=== PATIENT | male | born 1965 | race African-American/Black ===

== ENCOUNTER 2018-04-06 19:17 | Inpatient (IN) ==
--- NOTE | 2018-04-06 19:39 | Emergency Department Note ---
Disposition Clinical Impression: Elevated troponin Chest pain Qualifiers: Chest pain type: unspecified Qualified Code(s): R07.9 - Chest pain, unspecified Disposition: Admitted As Inpatient Condition: Good General Adult HPI - General Stated complaint: SOB, Chest Pain Time Seen by Provider: 04/06/18 19:20 Nursing Notes Reviewed: Yes Vital Signs Reviewed: Yes - History of Present Illness HPI Narrative: 53-year-old male past medical history of coronary artery disease, HIV, currently on retrovirals presents to the emergency department with concern for elevated troponin and EKG changes at and outside facility. Patient reported having sharp chest pain radiated up to the neck to the side of the face with numbness and tingling. - Related Data Home Medications Medication Instructions Recorded Confirmed Darunavir Ethanolate [Prezista] 600 mg PO BID 04/06/18 04/06/18 Enfuvirtide [Fuzeon] 90 mg SQ BID 04/06/18 04/06/18 Lisinopril [Zestril] 40 mg PO DAILY 04/06/18 04/06/18 RX: Chlorthalidone 25 mg PO DAILY 04/06/18 04/06/18 Raltegravir Potassium [Isentress] 400 mg PO BID 04/06/18 04/06/18 Rosuvastatin Calcium [Crestor] 20 mg PO DAILY 04/06/18 04/06/18 lamiVUDine [Epivir] 300 mg PO DAILY 04/06/18 04/06/18 Allergies Allergy/AdvReac Type Severity Reaction Status Date / Time Sulfa (Sulfonamide Allergy Itching Verified 04/06/18 19:52 Antibiotics) All systems ED: reviewed and negative except as stated. Review of Systems: As Per HPI Constitutional: Denies: fever Cardiovascular: Reports: chest pain Respiratory: Denies: cough, dyspnea Gastrointestinal: Reports: melena. Denies: abdominal pain, nausea, vomiting Genitourinary: Denies: urgency Musculoskeletal: Denies: back pain Physical Exam - General Limitations: no limitations General appearance: alert, in no apparent distress - Head Head exam: atraumatic, normocephalic - Eye Eye exam: Present: EOMI - ENT ENT exam: normal oropharynx - Neck Neck exam: Present: trachea midline - Chest Chest inspection: Present: symmetric chest wall rise - Respiratory Respiratory exam: Present: normal lung sounds bilaterally. Absent: respiratory distress - Cardiovascular Cardiovascular exam: Present: normal rhythm, bradycardia, normal heart sounds - Abdominal Exam Abdominal exam: Present: soft, Non-Tender. Absent: distention, guarding, rebound, rigidity - Rectal Exam Technology Professional present during exam: Yes Rectal exam: Present: normal inspection. Absent: black stool, bloody stool - Extremities Exam Extremities exam: Present: normal capillary refill - Back Exam Back exam: Present: full ROM - Neurological Exam Neurological exam: Present: alert, oriented X3 - Psychiatric Psychiatric exam: Present: normal affect, normal mood - Skin Skin exam: Present: warm, dry, intact, normal color. Absent: rash Course Vital Signs Temperature 98.7 F 04/06/18 19:28 Pulse Rate 48 04/06/18 19:28 Respiratory Rate 10 04/06/18 19:28 Blood Pressure 153/89 04/06/18 19:28 O2 Sat by Pulse Oximetry 100 04/06/18 19:28 Temperature 97.1 F L 04/07/18 07:06 Pulse Rate 51 04/07/18 07:06 Respiratory Rate 98 04/07/18 07:06 Blood Pressure 138/75 04/07/18 07:06 O2 Sat by Pulse Oximetry 92 04/07/18 07:06 Oxygen Delivery Oxygen Delivery Room Air Medical Decision Making - [facility] Narrative Medical decision making narrative: 53-year-old male presents emergency department with concern for chest pain. Patient had elevated troponin of 0.06 at an outside facility. The T-wave inversions in the anterior and lateral leads as was a T-wave inversion in aVL. Patient reported having blood in his stool. Stool guaiac was obtained. There was no gross blood noted. Patient will be given aspirin. Currently pending CTA of the chest, neck, head as patient was reporting sharp chest pain, radiating in the neck and the face. I spoke to Dr. Coronado regarding the patient. He will wait for the CTs prior to admission. Patient signed out to Dr. Alida Evans. Chest X-Ray 04/06/18 19:20 IMPRESSION: No acute cardiopulmonary disease. D/ / Cameron Owens MD / Cameron Owens MD Interpreting Provider: Cameron Owens MD Vital Signs Temperature 98.7 F 04/06/18 19:28 Pulse Rate 48 04/06/18 19:28 Respiratory Rate 10 04/06/18 19:28 Blood Pressure 153/89 04/06/18 19:28 O2 Sat by Pulse Oximetry 100 04/06/18 19:28 Temperature 98.7 F 04/06/18 19:28 Pulse Rate 49 04/06/18 19:54 Respiratory Rate 18 04/06/18 19:54 Blood Pressure 163/80 04/06/18 19:54 O2 Sat by Pulse Oximetry 100 04/06/18 19:54 Oxygen Delivery Oxygen Delivery Room Air - Lab Data Result diagrams: 04/07/18 02:35 04/07/18 02:35 Lab Results 04/06/18 04/06/18 04/06/18 Range/Units 20:09 20:22 20:22 PT 11.6 (9.4-12.1) Seconds INR 1.0 Troponin I 0.19 H* (< 0.04) ng/mL Stool Occult Bld Scrn Negative (Negative) - EKG Data EKG #1 EKG attestation: Yes I reviewed and interpreted this EKG. EKG results narrative: Heart rate 47 bpm, AR interval 180 ms, QTC 458 ms, QTC 405 ms, attacks deviation. Sinus rhythm with T-wave inversions in inferior and lateral leads. No previous EKG to compare to besides the previous study that was performed today which reveals the same. Attestation Statement - Attestation Attestation: I, Joesph Evans, examined this patient and my medical decision-making was reviewed with the SENIOR PIPING DESIGNER/PA/Advanced Practice Nurse/Resident Physician. I agree with the documented findings, disposition and treatment plan as described except to the extent set forth below. 53-year-old male presents emergency Department with concerns of chest pain, paresthesias of the left side of his face and multiple episodes of black liquid stool. Patient states symptoms have been occurring over the past week however he states they are worse over the past 4 hours. Patient develops paresthesias of the left side of his face and left side of his tongue today. He was seen at the [facility] who obtain laboratory evaluation showing elevated troponin. This sent him to [place] for further evaluation. Rectal exam performed in the emergency Department showed guaiac negative brown stool. Troponin showed biphasic T-wave in lead V3 without other evidence of systemic or dysrhythmia. Because of the patient's paresthesias of the left side of his face associated with chest pain we will obtain CTA of the chest abdomen pelvis to rule out aortic dissection, CTA of the neck to rule out carotid dissection and CT of the head for his paresthesias. Patient will likely be admitted to the hospital for further evaluation. Imaging is pending at this time. Signed out to Dr. Joseph
[2018-04-06] MEDS ORDERED: Aspirin 81 MG TAB.CHEW PO STA (19:42)
[2018-04-06] MEDS ORDERED: Isovue-370 500 ML INFUS..BTL IV ONE ×2 (20:16→20:28)
[2018-04-06 20:47] LABS: Prothrombin Time 11.6 Seconds (9.4-12.1)
--- NOTE | 2018-04-06 22:53 | Emergency Department Note ---
Disposition Clinical Impression: Elevated troponin Chest pain Qualifiers: Chest pain type: unspecified Qualified Code(s): R07.9 - Chest pain, unspecified Disposition: Admitted As Inpatient Condition: Good [facility]errals: [facility] [Primary Care Provider[facility] - General Adult HPI - General Chief complaint: ED Chest Pain Stated complaint: SOB, Chest Pain Time Seen by Provider: 04/06/18 19:20 Source: patient Limitations: no limitations - History of Present Illness Pain Scale: 5 - Related Data Home Medications Medication Instructions Recorded Confirmed Chlorthalidone 25 mg PO DAILY 04/06/18 04/06/18 Darunavir Ethanolate [Prezista] 600 mg PO BID 04/06/18 04/06/18 Enfuvirtide [Fuzeon] 90 mg SQ BID 04/06/18 04/06/18 Lisinopril [Zestril] 40 mg PO DAILY 04/06/18 04/06/18 Raltegravir Potassium [Isentress] 400 mg PO BID 04/06/18 04/06/18 Rosuvastatin Calcium [Crestor] 20 mg PO DAILY 04/06/18 04/06/18 lamiVUDine [Epivir] 300 mg PO DAILY 04/06/18 04/06/18 Allergies Allergy/AdvReac Type Severity Reaction Status Date / Time Sulfa (Sulfonamide Allergy Itching Verified 04/06/18 19:52 Antibiotics) Constitutional: Denies: fever Cardiovascular: Reports: chest pain Respiratory: Denies: cough, dyspnea Gastrointestinal: Reports: melena. Denies: abdominal pain, nausea, vomiting Genitourinary: Denies: urgency Musculoskeletal: Denies: back pain Past Medical History - Past Medical History Medical history: Reports: arthritis, asthma, GI bleed, HIV/AIDS, hyperlipidemia, hypertension, myocardial infarction - Social History Smoking Status: Former smoker Smokeless Tobacco Status: No Alcohol use: Reports: occasionally Drug use: Reports: marijuana Physical Exam - General Limitations: no limitations General appearance: alert, in no apparent distress Course Course Narrative: accepted sign out from Dr. Joseph who recievd sign out from Dr. Joesph Evans. Yolanda has been admitted to medicine for NSTEMI but we are waitng for CT scan to return secondary to a headache that he was having. Plan is to followup on CTA head/neck ad update the hospitalist and then continue to admit to medicne. - Consultations Consultation #1: discussed with Dr. worrell and he has accepted cherise ot his service. Would like cherise started on heparin drip now. Time: 23:26 Vital Signs Temperature 98.7 F 04/06/18 19:28 Pulse Rate 48 04/06/18 19:28 Respiratory Rate 10 04/06/18 19:28 Blood Pressure 153/89 04/06/18 19:28 O2 Sat by Pulse Oximetry 100 04/06/18 19:28 Temperature 98.7 F 04/06/18 19:28 Pulse Rate 49 04/06/18 19:54 Respiratory Rate 18 04/06/18 19:54 Blood Pressure 163/80 04/06/18 19:54 O2 Sat by Pulse Oximetry 100 04/06/18 19:54 Oxygen Delivery Oxygen Delivery Room Air Medical Decision Making - Lab Data Lab Results 04/06/18 04/06/18 04/06/18 Range/Units 20:09 20:22 20:22 PT 11.6 (9.4-12.1) Seconds INR 1.0 Troponin I 0.19 H* (< 0.04) ng/mL Stool Occult Bld Scrn Negative (Negative)
[2018-04-06] MEDS ORDERED: *HR* Heparin 5,000 UNIT/ML VIAL IVP ONE (23:26)
[2018-04-06] MEDS ORDERED: *HR* Heparin 5,000 UNIT/ML VIAL IVP PRN ×2 (23:26)
[2018-04-07 00:01] LABS: Hematocrit 36.1 % (37.5-50.1); Hemoglobin 11.8 g/dL (12.9-16.9); Mean Corpuscular HGB Conc 32.7 g/dL (31.6-35.5); Mean Corpuscular Hemoglobin 31.7 pg (28.0-33.3); Mean Platelet Volume 9.2 fL (9.4-12.4); Platelet Count 197 K/mcL (140-400); Red Blood Count 3.72 M/mcL (4.19-5.50); Red Cell Distribution Width 12.8 % (11.5-14.5)
[2018-04-07 00:12] LABS: Heparin anti-factor XA UFH 0.01 IU/mL (0.30-0.70)
[2018-04-07 00:13] LABS: INR 1.1; Prothrombin Time 12.2 Seconds (9.4-12.1)
[2018-04-07] MEDS: Heparin 25,000 UNIT/500 ML D5W 25,000 UNIT/500 ML BAG IVC SCH (01:23)
[2018-04-07 03:23] LABS: Basophils % 0.8 %; Eosinophils # 0.1 K/mcL (0.0-0.6); Eosinophils % 2.5 %; Hematocrit 36.2 % (37.5-50.1); Hemoglobin 12.3 g/dL (12.9-16.9); Immature Granulocytes % 0.2 % (0-4); Lymphocytes # 2.5 K/mcL (0.6-4.6); Lymphocytes % 48.7 %; Mean Corpuscular Hemoglobin 32.2 pg (28.0-33.3); Mean Corpuscular Volume 94.8 fL (83.0-100.0); Mean Platelet Volume 9.7 fL (9.4-12.4); Monocytes # 0.4 K/mcL (0.0-1.3); Monocytes % 7.6 %; Neutrophils # 2.1 K/mcL (1.6-8.9); Platelet Count 210 K/mcL (140-400); Red Blood Count 3.82 M/mcL (4.19-5.50); Red Cell Distribution Width 12.7 % (11.5-14.5); Segmented Neutrophils % 40.2 %
[2018-04-07 03:43] LABS: BUN/Creatinine Ratio 13 (6-26); Blood Urea Nitrogen 13 mg/dL (6-20); Calcium 9.6 mg/dL (8.6-10.3); Carbon Dioxide 26 mEq/L (23-29); Chloride 102 mEq/L (98-107); Glucose 108 mg/dL (70-105); Osmolality,Calculated 283 (280-300); Potassium 3.6 mEq/L (3.5-5.1); Sodium 136 mEq/L (136-145); eGFR For Non-African Americans > 60 (> 60)
[2018-04-07 03:44] LABS: Troponin I < 0.03 ng/mL (< 0.04)
--- NOTE | 2018-04-07 04:08 | Internal Med History&Physical ---
<Phyllis Delgado - Last Filed: 04/07/18 06:21> Date of Encounter: 04/07/18 Time of Encounter: 02:50 Internal Medicine - H&P: HPI Chief complaint: chest pain, black stool Plans for Post Hospital Care: Home History of present illness: Mr. Booth is a 53 year old male who presents as transfer from [place] with c/o chest pain and black stools. PMH significant for CAD, cardiac stents x4, HIV+ on antiretrovirals, HTN, HLD, and GIB. Chest pain and black stools present x2 weeks. Chest pain has increased in frequency and intensity over last 2 weeks; it occurs intermittently and length of episodes varies from a few minutes to half an hour. He's had 4 heart attacks in the past with chest pain described as pressure/heaviness. Chest pain located in center of chest characterized as sharp and tearing; the tearing sensation radiates from his chest to left side of his head. The chest pain improves with nitroglycerin; chest pain is worse with respiration and laying flat. He denies associated diaphoresis, nausea, confusion, vomiting, hematemesis, coffee-ground emesis, fevers, and chills. He admits lightheadedness, some shortness of breath but unclear if it's related to exertion. Regarding the tearing/pulling pain he feels in his head, it only occurs after his chest pain has started. He denies slurred speech, facial droop, unilateral weakness, vision changes. Admits to associated paresthesias on left side of face 1 day and is still present. Black stools characterized as watery with visible particulate matter-- patient describes it as "black dirt." Reports he's also had bowel movements containing blood clots and other times bright red blood, denies tarry or sticky consistency of his bowel movements. He has never had an EGD or a colonoscopy. Patient reports h/o 4 heart attacks and 4 stents. Last stent was placed in 2010. He had a C October 2017 and reports it showed some partial blockages, but none severe enough to require stent. Denies tobacco use, the only thing he smokes is marijuana. Denies past or present use of other drugs including IV. Reports his HIV was sexually transmitted, states he has only had sexual intercourse with women, he denies any sexual contact with men. Family history significant for heart disease, HTN, HLD, and DM. His mother age 56 from heart attack and his father age 61 from heart attack. Denies family history of blood clots, DVT, PE. Past Med Surg Social Fam HX - Past Medical History Medical history: arthritis, asthma, GI bleed, HIV/AIDS, hyperlipidemia, hypertension, myocardial infarction - Past Surgical History Additional surgical history: Cardiac Cath 3-4 months ago, knee sx - Social History Smoking Status: Former smoker Smokeless Tobacco Status: No Alcohol use: occasionally Drug use: marijuana - Family History Mother Hx Family Cancer: Yes Internal Medicine - H&P: Meds Chlorthalidone 25 mg PO DAILY 04/06/18 [History] Darunavir Ethanolate [Prezista] 600 mg PO BID 04/06/18 [History] Enfuvirtide [Fuzeon] 90 mg SQ BID 04/06/18 [History] Lisinopril [Zestril] 40 mg PO DAILY 04/06/18 [History] Raltegravir Potassium [Isentress] 400 mg PO BID 04/06/18 [History] Rosuvastatin Calcium [Crestor] 20 mg PO DAILY 04/06/18 [History] lamiVUDine [Epivir] 300 mg PO DAILY 04/06/18 [History] Allergy/AdvReac Type Severity Reaction Status Date / Time Sulfa (Sulfonamide Allergy Itching Verified 04/06/18 19:52 Antibiotics) All Systems PM: A 10-system review of systems was performed and is negative for pertinent findings except as documented above in the HPI. - Constitutional Constitutional: as per HPI - EENT Eyes: as per HPI - Cardiovascular Cardiovascular ROS IM: as per HPI - Respiratory Respiratory: as per HPI - Gastrointestinal Gastrointestinal: as per HPI - Musculoskeletal Musculoskeletal ROS IM: as per HPI - Neurological Neurological ROS: as per HPI - Constitutional Vitals: Temp Pulse Resp BP Pulse Ox 97.9 F 48 16 142/78 97 04/07/18 01:52 04/07/18 01:52 04/07/18 01:52 04/07/18 01:52 04/07/18 01:52 Exam: General: No acute distress, resting comfortably in bed, nontoxic appearance HEENT: head normocephalic and atraumatic, EOMI, PERRL, sclera anicteric, moist mucus membranes, mild scleral injection of right eye Neck: Supple, no lymphadenopathy Cardio: regular rate, bradycardic, no murmurs, +S1/S2 Pulm: Diffuse wheezing bilaterally, diminished airflow, Normal respiratory effort and equal chest rise Abdomen: soft, nontender, normal bowel sounds, nondistended Extremities: No LE edema, no calf tenderness, no cyanosis, clubbing, splinter hemorrhages Neuro: AAOx3, no focal deficit, no speech deficit, no facial droop, mentating well, decreased sensation left face, moves extremities spontaneously, 5/5 motor strength BUE and BLE, MSK: no visible deformities Skin: clean, dry, intact, no visible rashes Psych: Appropriate mood and affect. Answers questions appropriately. Cooperative with exam Internal Med - H&P Results - Labs CBC & Chem 7: 04/07/18 02:35 04/07/18 02:35 Labs: Short CBC 04/06/18 04/07/18 Range/Units 23:50 02:35 WBC 5.7 5.2 (4.3-11.1) K/mcL Hgb 11.8 L 12.3 L (12.9-16.9) g/dL Hct 36.1 L 36.2 L (37.5-50.1) % Plt Count 197 210 (140-400) K/mcL Neutrophils # 2.1 (1.6-8.9) K/mcL BMP 04/07/18 02:35 Sodium 136 Potassium 3.6 Chloride 102 Carbon Dioxide 26 BUN 13 Creatinine 1.02 Glucose 108 H Calcium 9.6 Cardiac Enzymes 04/06/18 04/07/18 Range/Units 20:22 02:35 Troponin I 0.19 H* < 0.03 (< 0.04) ng/mL - Impressions ITS Impressions Chest X-Ray 04/06/18 19:20 IMPRESSION: No acute cardiopulmonary disease. D/ / Cameron Owens MD / Cameron Owens MD Interpreting Provider: Cameron Owens MD Chest CTA 04/06/18 20:16 IMPRESSION: No evidence of pulmonary embolism or acute pulmonary abnormality. Incidentally noted 13 mm right adrenal nodule indeterminate on this contrast-enhanced CT. Consider follow-up adrenal mass protocol CT in 12 months. D/ / Ifeanyi Armendariz MD / Ifeanyi Armendariz MD Interpreting Provider: Ifeanyi Armendariz MD Head CTA 04/06/18 20:28 IMPRESSION: 1. No acute intracranial abnormality. 2. No acute arterial abnormality in the head or neck. 3. Bilateral proximal internal carotid artery stenosis measuring 40% on the left and less than 25% on the right. 4. No vertebral artery stenosis. 5. Mild emphysema. 6. Mild degenerative changes in the cervical spine. D/ / Enrique Merchant / Enrique Merchnat Interpreting Provider: Enrique Merchant Neck CTA 04/06/18 20:28 IMPRESSION: 1. No acute intracranial abnormality. 2. No acute arterial abnormality in the head or neck. 3. Bilateral proximal internal carotid artery stenosis measuring 40% on the left and less than 25% on the right. 4. No vertebral artery stenosis. 5. Mild emphysema. 6. Mild degenerative changes in the cervical spine. D/ / Enrique Merchant / Enrique Merchant Interpreting Provider: Enrique Merchant - Assessment and plan (1) NSTEMI (non-ST elevated myocardial infarction) Current Visit: Yes Status: Acute Assessment and plan: Troponin 0.06, 0.19, and <0.03 EKG shows bradycardia, sinus rhythm, inverted T waves of inferior leads CXR negative for acute processes Chest CTA negative for evidence of PE or acute pulmonary abnormality--incidental right adrenal nodule Heparin gtt Consult to cardiology Echocardiogram Check lipid panel Check Hgb A1c (2) Facial paresthesia Current Visit: Yes Status: Acute Assessment and plan: etiology unclear will consult neurology (3) HIV positive Current Visit: Yes Status: Acute Assessment and plan: Currently on antiretroviral therapy, continue these meds (4) Bradycardia with 41-50 beats per minute Current Visit: Yes Status: Acute Assessment and plan: Sinus celeste seen on EKG and telemetry Concern this may be related to ischemia involving SA node (5) Elevated troponin Current Visit: Yes Status: Acute Assessment and plan: resolved, troponin now < 0.03 Plan as above (6) Hypertension Current Visit: Yes Status: Acute Assessment and plan: continue home meds Qualifiers: Hypertension type: unspecified Qualified Code(s): I10 - Essential (primary) hypertension (7) Chest pain Current Visit: Yes Status: Acute Assessment and plan: Most likely related to NSTEMI Improves with nitro CXR negative for acute cardiopulmonary process CTA Chest negative for evidence of PE and negative for acute cardiopulmonary process Qualifiers: Chest pain type: unspecified Qualified Code(s): R07.9 - Chest pain, unspecified (8) Hyperlipidemia Current Visit: Yes Status: Acute Assessment and plan: Rosuvastatin 20mg taken at home Possibly related to side effect of anti-retrovirals. Also has strong family history of HLD. Recheck lipids Qualifiers: Hyperlipidemia type: unspecified Qualified Code(s): E78.5 - Hyperlipidemia, unspecified (9) DVT prophylaxis Current Visit: Yes Status: Acute Assessment and plan: Heparin gtt - Time Spent With Patient Total time spent is greater than 50% in coordination of care (as documented) at patient's floor/unit and/or counseling patient: <Suresh Diaz - Last Filed: 04/07/18 06:54> Time of Encounter: 05:45 - Constitutional Constitutional: no chills, no fever(s) - EENT Eyes: no change in vision Ears: no ear pain, no tinnitus Nose, mouth and throat: no nasal congestion, no sore throat - Cardiovascular Cardiovascular ROS IM: chest pain, no dyspnea, no dyspnea on exertion, no orthopnea - Respiratory Respiratory: cough, wheezing - Gastrointestinal Gastrointestinal: melena, no abdominal pain, no diarrhea, no hematemesis, no hematochezia, no nausea, no vomiting - Genitourinary Genitourinary ROS male: no dysuria, no flank pain - Musculoskeletal Musculoskeletal ROS IM: no arthralgias, no back pain - Integumentary Integumentary IM: no rash, no jaundice - Neurological Neurological ROS: paresthesias (facial parasthesias), no dizziness, no focal weakness, no frequent falls, no headache(s) - Psychiatric Psychiatric: no anxiety, no depression - Constitutional Vitals: Temp Pulse Resp BP Pulse Ox 97.8 F 73 18 135/84 100 04/07/18 04:52 04/07/18 04:52 04/07/18 04:52 04/07/18 04:52 04/07/18 04:52 General appearance: Present: cooperative, A&O X 3, pleasant, no acute distress - Head Head exam: Present: normal inspection - Eye Eye exam: Present: EOMI, PERRL. Absent: scleral icterus Pupils: Present: normal accommodation - ENT ENT exam: Present: mucous membranes dry, normal exam, normal oropharynx - Neck Neck exam general surgery: Present: full ROM, supple. Absent: tenderness, nuchal rigidity, thyromegaly - Respiratory Respiratory exam: Present: wheezes. Absent: chest wall tenderness, rales, respiratory distress, rhonchi, tachypnea - Cardiovascular Cardiovascular exam: Present: RRR, +S1, +S2. Absent: diastolic murmur, systolic murmur - GI/Abdominal GI/Abdominal exam: Present: normal bowel sounds, soft. Absent: hepatomegaly, mass, splenomegaly, tenderness - Extremities Exam Extremities exam: Present: normal capillary refill, warm, radial pulses palpable and symmetrical. Absent: calf tenderness, joint swelling, pedal edema, tenderness - Back Exam Back exam: Absent: CVA tenderness (L), CVA tenderness (R) Internal Med - H&P Results - Labs CBC & Chem 7: 04/07/18 02:35 04/07/18 02:35 Labs: Short CBC 04/06/18 04/07/18 Range/Units 23:50 02:35 WBC 5.7 5.2 (4.3-11.1) K/mcL Hgb 11.8 L 12.3 L (12.9-16.9) g/dL Hct 36.1 L 36.2 L (37.5-50.1) % Plt Count 197 210 (140-400) K/mcL Neutrophils # 2.1 (1.6-8.9) K/mcL BMP 04/07/18 02:35 Sodium 136 Potassium 3.6 Chloride 102 Carbon Dioxide 26 BUN 13 Creatinine 1.02 Glucose 108 H Calcium 9.6 Cardiac Enzymes 04/06/18 04/07/18 Range/Units 20:22 02:35 Troponin I 0.19 H* < 0.03 (< 0.04) ng/mL - Impressions ITS Impressions Chest X-Ray 04/06/18 19:20 IMPRESSION: No acute cardiopulmonary disease. D/ / Cameron Owens MD / Cameron Owens MD Interpreting Provider: Cameron Owens MD Chest CTA 04/06/18 20:16 IMPRESSION: No evidence of pulmonary embolism or acute pulmonary abnormality. Incidentally noted 13 mm right adrenal nodule indeterminate on this contrast-enhanced CT. Consider follow-up adrenal mass protocol CT in 12 months. D/ / Ifeanyi Armendariz MD / Ifeanyi Armendariz MD Interpreting Provider: Ifeanyi Armendariz MD Head CTA 04/06/18 20:28 IMPRESSION: 1. No acute intracranial abnormality. 2. No acute arterial abnormality in the head or neck. 3. Bilateral proximal internal carotid artery stenosis measuring 40% on the left and less than 25% on the right. 4. No vertebral artery stenosis. 5. Mild emphysema. 6. Mild degenerative changes in the cervical spine. D/ / Enrique Merchant / Enrique Merchant Interpreting Provider: Enrique Merchant Neck CTA 04/06/18 20:28 IMPRESSION: 1. No acute intracranial abnormality. 2. No acute arterial abnormality in the head or neck. 3. Bilateral proximal internal carotid artery stenosis measuring 40% on the left and less than 25% on the right. 4. No vertebral artery stenosis. 5. Mild emphysema. 6. Mild degenerative changes in the cervical spine. D/ / Enrique Merchant / Enrique Merchant Interpreting Provider: Enrique Merchant - Assessment and plan (1) Elevated troponin Current Visit: Yes Status: Acute (2) Chest pain Current Visit: Yes Status: Acute Qualifiers: Chest pain type: unspecified Qualified Code(s): R07.9 - Chest pain, unspecified (3) NSTEMI (non-ST elevated myocardial infarction) Current Visit: Yes Status: Acute (4) Facial paresthesia Current Visit: Yes Status: Acute (5) HIV positive Current Visit: Yes Status: Acute (6) Hypertension Current Visit: Yes Status: Acute Qualifiers: Hypertension type: unspecified Qualified Code(s): I10 - Essential (primary) hypertension (7) Hyperlipidemia Current Visit: Yes Status: Acute Qualifiers: Hyperlipidemia type: unspecified Qualified Code(s): E78.5 - Hyperlipidemia, unspecified (8) Bradycardia with 41-50 beats per minute Current Visit: Yes Status: Acute (9) DVT prophylaxis Current Visit: Yes Status: Acute - Time Spent With Patient Total time spent is greater than 50% in coordination of care (as documented) at patient's floor/unit and/or counseling patient: - Attending Attestation I discussed the [place], past medical history, review of systems, lab data, and exam findings with Dr. Llanos. I then saw and examined patient independently as well. Patient is resting in bed comfortably and remains chest pain-free at this time. He has no dyspnea presently. He admits to having had some facial paresthesias earlier and some difficulty with eyelid closure. However, on my exam, I do not appreciate any abnormalities neurologically. Nonetheless, given his symptoms and HIV, I do agree with imaging and neurology consultation. Regarding his cardiac history, has had several PCI and stents in the past. He last had a heart catheterization in October of this year at [facility] in [place]. He unfortunately had some documented blockages but not big enough to intervene upon. He now presents with chest pain and positive troponins. He remains on heparin drip. He has also had some melena, and he is somewhat anemic. I am concerned that he might have gastritis and/or a brewing ulcer. We will therefore place him on Protonix and consult GI in addition to cardiology. Other than my comments above and noted exam findings, I agree with Dr. Llanos's assessment and plan.
[2018-04-07] MEDS ORDERED: Albuterol 2.5 MG/3 ML NEBULIZER IH ONE (05:50)
[2018-04-07 06:12] LABS: INR 1.1; Prothrombin Time 12.4 Seconds (9.4-12.1)
[2018-04-07 06:20] LABS: Chol/HDL Ratio 4.4 (0-4.9)
[2018-04-07 06:40] LABS: Activated Partial Thrombo Time 124.7 Seconds (26.0-36.0)
[2018-04-07 07:02] LABS: Estimated Average Glucose 128 mg/dl; Hemoglobin A1C 6.1 %
[2018-04-07] MEDS ORDERED: Potassium Chloride Elixir 20 MEQ/15 ML UDC PO ONE (07:39)
--- NOTE | 2018-04-07 08:01 | Event Note ---
Date of Encounter: 04/07/18 Time of Encounter: 13:15 [place] with [place] pain and radiation of pain to the left neck and face. PMH CAD, PCIx4, HIV on anti virals, HTN, HLD, GIB. Symptoms present intermittently for 2 weeks. With chest pain has tearing pain in left head and left face paresthesias. Back from MRI. Awake, alert and pleasant. Left face pain resolved with persistent entire left face and left side of tongue numbness. Denies numbness/tingling weakness, paralysis, vision changes, szymanski, speech change,dys phagia, dysarthria at any time in past two weeks including now. No chest pain this morning thus far. No neck pain. He notes always mild sob at baseline and unchanged. No abd pain, nausea, or emesis with chest pain. In regards to notation of melena. He had one black bm one week ago and none ever before, however he has a 3 year history of bloody bms with clots. Has had none in recent days and none here this admission. Had normal soft formed brown bm since admit. He has never had cscope and outpt provider currently working to schedule hi for one. with bleeding he has lower abd cramping. he has had ct scan of abd/pelvis per his report that did NOT identify any causes or masses. He is not lightheaded or dizzy with celeste HRs General: awake, alert, appears stated age HEENT:EOM, pupils equal, round, moist mucus membranes, clear oropharynx , no conjunctival pallor Neck: supple, trachea midline Cardiovascular:regular rate and rhythm, normal S1 & S2, no rubs, murmurs or gallops. No JVD. no lower extremity edema Lungs:Normal breath sounds, no wheezes, or crackles. Normal respiratory effort on ra Abdomen:Soft, non-tender, non-distended, no rigidity, + bowel sounds Neurological: AAOx3, left face sensation diminished to lt touch, speech clear, CN otherwise intact Skin:Normal color, no rash, no pallor, no jaundice apparent NSTEMI on hep gtt, cards consulted, echo pending, CTA neg PE or dissection, on asa, statin, acei, no BB due to bradycardia, d/w Cards [employer] [place] and cards aware of consult, will fu tests and see pt with further recs Bradycardia, sinus, on tele, monitoring lytes to keep at goal, check mag, cards consulted, concern is related to possible ischemia Facial Pain/Parasthesias unclear etiology at this time, CTA neg dissection, CTA head/neck neg fora cute abnormality/dissection, LICA 40% stenosis and CALI <25% will fu Neurology recs, on asa, statin, neuro checks, echo, obtain MRI as discussed with neuro when calling consult and no acute findings, few non specific subcortical white matter areas c/w chronic microvascular ischemia, remote trauma or migraine Melena episode and history of BRBPR and hematochezia x3 years- Anemia on admit hgb 11.8 and uptrend to normal without intervention, no prior hgb to see if acute vs chronic vs acute on chronic - requires hep gtt for nstemi at this time, serial h/hs hgb currently, occult stool negative, IV PPI BID, will monitor for visualized signs of bleeding here and if present will consult surg for active bleed as they are providing emergent coverage for GI this weekend and GI consult placed on admit, unless there is an emergency, will not be seen until monday HIV on antivirals Incidental R adrenal nodule 13 mm noted on CTA chest rec is for follow up adrenal mass protocol CT in 12 months
[2018-04-07] MEDS: Aspirin 81 MG TAB.CHEW PO SCH (08:46)
[2018-04-07] MEDS: Lisinopril 20 MG TABLET PO SCH (08:46)
[2018-04-07] MEDS ORDERED: RALTEGRAVIR POTASSIUM 400 MG TABLET PO SCH (09:00)
--- NOTE | 2018-04-07 11:58 | Electrocardiograph Report ---
[address] [place], [place] [address] Test Date: 2018-04-06 Pat Name: Clemente Booth Department: EXAM1 Room: 2NE28 Gender: M [employer]: : 1965 Requested By: Stewart Morales Order Number: [id number] Reading MD: Yoana Locke Measurements Intervals [place] Rate: 47 P: 24 WV: 180 QRS: -51 QRSD: 119 T: 212 QT: 458 QTc: 405 Interpretive Statements Sinus bradycardia LVH with IVCD, LAD and probable secondary repol abnrm Cannot rule out anterior ischemia Electronically Signed On 04-07-2018 11:56:22 EDT by Yoana Locke
[2018-04-07] MEDS: lamiVUDine 150 MG TABLET PO SCH (12:39)
[2018-04-07 12:56] LABS: Hematocrit 41.2 % (37.5-50.1); Hemoglobin 13.8 g/dL (12.9-16.9)
[2018-04-07] MEDS: DARUNAVIR ETHANOLATE 600 MG PO SCH ×2 (17:03→21:56)
[2018-04-07] MEDS: [UNRECOGNIZED DRUG - OTHER] SQ SCH ×2 (17:04→21:55)
[2018-04-07] MEDS: Pantoprazole 40 MG VIAL IVP SCH (17:07)
--- NOTE | 2018-04-07 19:16 | Neurology - Consult Note ---
Date of Encounter: 04/07/18 Time of Encounter: 17:12 Assessment and Plan (1) Facial paresthesia Current Visit: Yes Status: Acute Patient is complaining of this is a facial paresthesias predominantly in the left V 3 distribution Without any other focal findings on his neurological examination. MRI of the brain is negative for any acute abnormality in particularly no evidence of any infarction Considering his presentation seems to be very unusual though it is in the trigeminal nerve distribution but there is no pain associated with this Possible that he could be having symptoms of mononeuritis, but again usually is in the peripheral nerve distribution and not in the cranial nerve With his history of HIV that remains a possibility that it could be affecting his continue nerve perhaps he may need to repeat an MRI of the brain with contrast to see if there is enhancement in the cranial nerve distribution Other possibility that it could be from a cervical impingement in the higher cranial nerve as he is also complaining of some paresthesias in his left upper extremity off-and-on as well We will get an MRI of the cervical spine to make sure there is no critical cervical stenosis At the moment he is not having any pain do not think that he would require any pain medication Also suggested check for other metabolic abnormalities in particularly for vitamin B-12 and folic acid that sometime could present with unusual presentation Other treatment is as per primary team History of Present Illness HPI: Mr. Booth is a 53 year old male transfer from [place] with c/o chest pain and black stools. PMH significant for CAD, cardiac stents x4, HIV+ on antiretrovirals, HTN, HLD, and GIB. Chest pain and black stools present x2 weeks. Chest pain has increased in frequency and intensity over last 2 weeks; i t occurs intermittently and length of episodes varies from a few minutes to half an hour. He's had 4 heart attacks in the past with chest pain described as pressure/heaviness. Chest pain located in center of chest characterized as sharp and tearing; the tearing sensation radiates from his chest to left side of his head. The chest pain improves with nitroglycerin; chest pain is worse with respiration and laying flat. He denies associated diaphoresis, nausea, confusion, vomiting, hematemesis, coffee-ground emesis, fevers, and chills. He admits lightheadedness, some shortness of breath but unclear if it's related to exertion. Regarding the tearing/pulling pain he feels in his head, it only occurs after his chest pain has started. He denies slurred speech, facial droop, unilateral weakness, vision changes. Admits to associated paresthesias on left side of face 1 day and is still present. Past Med Surg Social Fam HX - Past Medical History Medical history: arthritis, asthma, GI bleed, HIV/AIDS, hyperlipidemia, hype rtension, myocardial infarction - Past Surgical History Additional surgical history: Cardiac Cath 3-4 months ago, knee sx - Social History Smoking Status: Former smoker Smokeless Tobacco Status: No Alcohol use: occasionally Drug use: marijuana - Family History Mother Hx Family Cancer: Yes Medications and Allergies Chlorthalidone 25 mg PO DAILY 04/06/18 [History] Darunavir Ethanolate [Prezista] 600 mg PO BID 04/06/18 [History] Enfuvirtide [Fuzeon] 90 mg SQ BID 04/06/18 [History] Lisinopril [Zestril] 40 mg PO DAILY 04/06/18 [History] Raltegravir Potassium [Isentress] 400 mg PO BID 04/06/18 [History] Rosuvastatin Calcium [Crestor] 20 mg PO DAILY 04/06/18 [History] lamiVUDine [Epivir] 300 mg PO DAILY 04/06/18 [History] Allergy/AdvReac Type Severity Reaction Status Date / Time Sulfa (Sulfonamide Allergy Itching Verified 04/06/18 19:52 Antibiotics) All Systems: The remainder of the systems were reviewed and are negative Physical Examination - Vital Signs Vital Signs: Initial Vital Signs Temp Pulse Resp BP Pulse Ox 98.7 F 48 10 153/89 100 04/06/18 19:28 04/06/18 19:28 04/06/18 19:28 04/06/18 19:28 04/06/18 19:28 - Exam Exam: GENERAL: Comfortable in no acute distress HEENT: Normal LUNGS: CTA HEART: RRR, S1 S2 Audible, no murmur EXTREMITIES: No Pedal edema. DETAILED NEUROLOGICAL EXAMINATION: MENTAL STATUS: Oriented to person, place, date and situation. Memory: knows the President, Aware of recent events Recent Memory Intact Cranial Nerve Examination: CN - II: Visual Acuity, Field of Vision Normal, Fundus examination: No disk edema, Pupils- size shape reaction to light and accommodation: All normal. CN III, IV, : External ocular movements were intact, Pupils were reactive, Nodrooping of the eyelids CN V: Sensation over the face to light touch and pinprick all normal. Except decreased to the pinprick in the left V3 distribution Corneal reflexes not tested, jaw jerk normal. CN VII: No facial asymmetry, no flattening of nasolabial folds, no difficulty in closing the eyes, no loss of forehead wrinkles, no difficulty in eye-closure, frowning raising eyebrows. CNVIII: No significant hearing loss CN IX, X: Uvula centralized not deviated, Gag reflex: Not tested CN X1: Sternocleidomastoid, trapezius, normal or evidence of any weakness. CN X11: No Dysarthria, no wasting or fibrilation f tongue muscles, no deviation, tongue muscle strength normal. Motor examination: No hypertrophy, tone was normal, power grade 0-5 Upper limbs Proximal- No difficulty in lifting the arms above the head. Distal- No weakness in distal muscles On formal testing 5/5 all over Lower limbs On formal testing 5/5 all over Coordination: [id number] normal. Target pursuit normal finger tapping normal, Rapid alternating moment of wrist normal Sensory system: Superficial sensations- Touch normal. Pain- Pinprick, Temperature all normal, Deep sensation normal, Joint position sense normal. Cortical sensation, Tactile discrimination, localization and extinction all normal. Deep tendon reflexes. Symmetrical bilateral, No evidence of Babinski. No sign of meningeal irritation Gait Examination: Deferred Results - Laboratory Findings CBC and BMP: 04/07/18 12:43 04/07/18 02:35 Abnormal lab findings: Abnormal lab results RBC 3.82 M/mcL (4.19-5.50) L 04/07/18 02:35 PT 12.4 Seconds (9.4-12.1) H 04/07/18 05:25 APTT 124.7 Seconds (26.0-36.0) H* 04/07/18 05:25 Glucose 108 mg/dL (70-105) H 04/07/18 02:35 Hemoglobin A1c 6.1 % (-5.6) H 04/07/18 05:25 HDL Cholesterol 31 mg/dL (40-59) L 04/07/18 05:25 - Diagnostic Findings Additional findings: MRI of the brain reported as negative Consult Discharge Plan - Plan [facility]: [facility] [Primary Care Provider] -
[2018-04-07 20:49] LABS: Hematocrit 39.1 % (37.5-50.1); Hemoglobin 13.3 g/dL (12.9-16.9)
[2018-04-07] MEDS: RALTEGRAVIR POTASSIUM 400 MG TABLET PO SCH (21:52)
[2018-04-08] MEDS: Heparin 25,000 UNIT/500 ML D5W 25,000 UNIT/500 ML BAG IVC SCH (04:58)
[2018-04-08] MEDS: Pantoprazole 40 MG VIAL IVP SCH ×2 (05:04→15:56)
[2018-04-08 07:56] LABS: Basophils # 0.1 K/mcL (0.0-0.2); Basophils % 0.9 %; Eosinophils # 0.1 K/mcL (0.0-0.6); Eosinophils % 2.1 %; Hematocrit 38.7 % (37.5-50.1); Hemoglobin 13.2 g/dL (12.9-16.9); Immature Granulocytes % 0.6 % (0-4); Lymphocytes # 2.1 K/mcL (0.6-4.6); Lymphocytes % 39.8 %; Mean Corpuscular HGB Conc 34.1 g/dL (31.6-35.5); Mean Corpuscular Volume 93.9 fL (83.0-100.0); Mean Platelet Volume 9.9 fL (9.4-12.4); Monocytes # 0.4 K/mcL (0.0-1.3); Monocytes % 7.7 %; Neutrophils # 2.6 K/mcL (1.6-8.9); Platelet Count 222 K/mcL (140-400); Red Blood Count 4.12 M/mcL (4.19-5.50); Red Cell Distribution Width 12.8 % (11.5-14.5); Segmented Neutrophils % 48.9 %
[2018-04-08 08:05] LABS: BUN/Creatinine Ratio 14 (6-26); Blood Urea Nitrogen 15 mg/dL (6-20); Calcium 9.7 mg/dL (8.6-10.3); Carbon Dioxide 27 mEq/L (23-29); Chloride 104 mEq/L (98-107); Glucose 109 mg/dL (70-105); Magnesium 1.8 mg/dL (1.6-2.6); Osmolality,Calculated 287 (280-300); Potassium 3.9 mEq/L (3.5-5.1); Sodium 138 mEq/L (136-145); eGFR For Non-African Americans > 60 (> 60)
[2018-04-08] MEDS: DARUNAVIR ETHANOLATE 600 MG PO SCH ×2 (08:52→22:29)
[2018-04-08] MEDS: [UNRECOGNIZED DRUG - OTHER] SQ SCH ×2 (08:52→22:29)
[2018-04-08] MEDS: RALTEGRAVIR POTASSIUM 400 MG TABLET PO SCH ×2 (08:52→22:29)
[2018-04-08] MEDS: Lisinopril 20 MG TABLET PO SCH (08:52)
[2018-04-08] MEDS: lamiVUDine 150 MG TABLET PO SCH (08:52)
[2018-04-08] MEDS: Aspirin 81 MG TAB.CHEW PO SCH (08:52)
[2018-04-08] MEDS ORDERED: Gadolinium Contrast Agent (WT Based) IV PRN (09:19)
--- NOTE | 2018-04-08 09:54 | Cardiology Consult Note ---
Date of Encounter: 04/08/18 Time of Encounter: 09:49 Assessment and Plan (1) Chest pain Current Visit: Yes Status: Acute Possible ACS, first troponin abnormal but follow up has been negative. Invasive eval. deferred currently due to possible blood in stool and numbness in face. In the meantime would get echo and records of previous heart cath. Qualifiers: Chest pain type: unspecified Qualified Code(s): R07.9 - Chest pain, unspecified Discussion w patient/family: The assessment and plan as outlined above was discussed with the patient and/or family members who expressed understanding and agreement. All questions were answered. Thank you for involving us in the care of your patient. Please call with any questions. History of Present Illness Consult date: 04/08/18 Requesting physician: Teresa Castro Consult reason: Abnormal troponin Chief complaint: Chest pain History of present illness: Mr. Booth is a 53 year old male with multiple medical problems including known CAD. He presents with multiple complaints. He describes chest pain that is nonexertional, last several hours and is relieved bt nitro. He also complains of blood in stool for several seeks and dark stools. He also complains of numbness on left side of face. He has a history of CAD and stents remotely, last heart cath was October of the this year at [facility] and no intervention was performed. Past Med Surg Social Fam HX - Past Medical History Medical history: arthritis, asthma, GI bleed, HIV/AIDS, hyperlipidemia, hypertension, myocardial infarction - Past Surgical History Additional surgical history: Cardiac Cath 3-4 months ago, knee sx - Social History Smoking Status: Former smoker Smokeless Tobacco Status: No Alcohol use: occasionally Drug use: marijuana - Family History Mother Hx Family Cancer: Yes Medications and Allergies Chlorthalidone 25 mg PO DAILY 04/06/18 [History] Darunavir Ethanolate [Prezista] 600 mg PO BID 04/06/18 [History] Enfuvirtide [Fuzeon] 90 mg SQ BID 04/06/18 [History] Lisinopril [Zestril] 40 mg PO DAILY 04/06/18 [History] Raltegravir Potassium [Isentress] 400 mg PO BID 04/06/18 [History] Rosuvastatin Calcium [Crestor] 20 mg PO DAILY 04/06/18 [History] lamiVUDine [Epivir] 300 mg PO DAILY 04/06/18 [History] Allergy/AdvReac Type Severity Reaction Status Date / Time Sulfa (Sulfonamide Allergy Itching Verified 04/06/18 19:52 Antibiotics) All Systems Review: The remainder of the systems were reviewed and are negative Physical Examination Vital Signs, Last 4 Hours Pulse Resp BP Pulse Ox 04/08/18 07:40 74 17 138/80 98 General: Conversant, No Apparent Distress HEENT: Atraumatic, Normocephaly, Mucus Membranes Moist Neck: No JVD, Normal carotid pulses Cardiac: Reg Rate and Rhythm, Normal S1 and S2, Other (Systolic mummur) Lungs: Normal Breath Sounds, No Wheeze, Rales, Rhonchi Neuro: Alert and responsive, No focal deficits noted Abdomen: Soft, Non-Tender Skin: No rashes noted on visualized skin Musculoskeletal: No Chest Wall Tenderness Extremities: No Clubbing, No Cyanosis, No Edema, Normal Pulses Results 04/08/18 07:06 04/08/18 07:06 Lab Results 04/07/18 04/07/18 04/08/18 12:43 20:32 07:06 WBC 5.4 Hgb 13.8 D 13.3 13.2 Hct 41.2 39.1 38.7 Plt Count 222 Sodium Potassium Chloride Carbon Dioxide BUN Creatinine Glucose Calcium Magnesium 04/08/18 07:06 WBC Hgb Hct Plt Count Sodium 138 Potassium 3.9 Chloride 104 Carbon Dioxide 27 BUN 15 Creatinine 1.08 Glucose 109 H Calcium 9.7 Magnesium 1.8 - EKG Interpretation EKG results cardiology: other (Sinus rhythm, diffuse T wave inversion.) Consult Discharge Plan - Plan [facility]errals: [facility] [Primary Care Provider] -
--- NOTE | 2018-04-08 12:06 | Internal Med Progress Note ---
Hospitalist Progress Note - Encounter Date of Encounter: 04/08/18 Time of Encounter: 09:40 - Subjective Interval History: awake, no chest pain or face pain overnight. denies sob. cont left face numbness/tingling. No other parasthesias, weakness or paralysis, no speech changes, szymanski or vision changes. BM here brown and formed. no abd pain, n/e. - Exam Vitals: Temp Pulse Resp BP Pulse Ox 97.6 F 74 17 138/80 98 04/08/18 04:06 04/08/18 07:40 04/08/18 07:40 04/08/18 07:40 04/08/18 07:40 Exam: General: awake, alert, appears stated age HEENT:EOM intact, pupils equal, round, moist mucus membranes Cardiovascular:regular rate and rhythm, normal S1 & S2, no murmurs no lower extremity edema Lungs:mild exp wheezing ant, no rhonchi or crackles,. Normal respiratory effort on ra Abdomen:Soft, non-tender, non-distended, no rigidity, + bowel sounds Neurological: AAOx3, left face sensation diminished to lt touch, speech clear, CN otherwise intact - Assessment and Plan (1) NSTEMI (non-ST elevated myocardial infarction) Current Visit: Yes Status: Acute Assessment and Plan: NSTEMI, inital trop elevated 0.19 now down trended to normal trop at outside facility 0.06 and ekg with T wave inversions in the anterior and lateral leads as was a T-wave inversion in aVL. CTA neg PE or dissection, CXR neg attempting to obtain old cath reports-last heart cath was October of the this year at [facility] and no intervention was performed lipid panel with low HDL otherwise wnl A1C 6.1-prediabetic -on asa, statin, acei, no BB due to bradycardia -remains on hep gtt -cards following and will need [facility] but deferred currently due to hx of gib at home(none evident here to date) and left face numbness -awaiting echo -GI consult when gi available monday -neuro following regarding left face numbness (2) Chest pain Current Visit: Yes Status: Acute Assessment and Plan: suspect angina with cardiac work up and treatment as above improved on heparin gtt imaging neg for pulm cause, CTA neg PE (3) Facial paresthesia Current Visit: Yes Status: Acute Assessment and Plan: Facial Pain/Parasthesias unclear etiology at this time, FAcial pain assoicated with chest pain has resolved -CTA neg dissection, CTA head/neck neg fora cute abnormality/dissection, LICA 40% stenosis and CALI <25% -MRI brain no acute IC findings, few non specific foci in subcortical white matter c/w chronic microvascular ischemia, remote trauma or migraine -neurology following- rec for MRI with contrast of head to eval for neuritis, alejandro in setting of HIV, to rule out cranial nerve neuritis, obtain MRI C spine to rule out cervial impingement as has hx of occassional numbness in left hand -neuro checks unchanged -on asa, statin (4) HIV positive Current Visit: Yes Status: Acute Assessment and Plan: on anti virals details of most recent counts unknown (5) Hypertension Current Visit: Yes Status: Acute Assessment and Plan: continue home meds- lisinopril, BB held due to bradycardia (6) Hyperlipidemia Current Visit: Yes Status: Acute Assessment and Plan: cont statin (7) Bradycardia with 41-50 beats per minute Current Visit: Yes Status: Acute Assessment and Plan: sinus, on tele, monitoring lytes to keep at goal - cards consulted, concern is related to possible ischemia -mag ox interacts with his anti virals, will have to confirm with pharmacy safest formulation of mag should he need it hold BB (8) DVT prophylaxis Current Visit: Yes Status: Acute Assessment and Plan: on hep gtt (9) GI bleed Current Visit: Yes Status: Acute Assessment and Plan: Melena episode and history of BRBPR and hematochezia x3 years- none this admission Anemia on admit hgb 11.8 and uptrend to normal without intervention, no prior hgb to see if acute vs chronic vs acute on chronic - requires hep gtt for nstemi at this time, serial h/hs stable, can now check daily or as needed -occult stool negative -IV PPI BID, will monitor for visualized signs of bleeding here and if present will consult surg for active bleed as they are providing emergent coverage for GI this weekend and GI consult placed on admit, unless there is an emergency, will not be seen until monday (10) Adrenal nodule Current Visit: Yes Status: Acute Assessment and Plan: incidental right adrenal nodule 13 mm on CTA chest -rec per radiology is adrenal mass protocol CT in 12 months - Time Spent with Patient Total time spent is greater than 50% in coordination of care (as documented) at patient's floor/unit and/or counseling patient: 25 - 35 minutes Plan of Care Discussed with: patient Internal Medicine: Result - Labs CBC & Chem 7: 04/08/18 07:06 04/08/18 07:06 Labs: Short CBC 04/07/18 04/07/18 04/08/18 Range/Units 12:43 20:32 07:06 WBC 5.4 (4.3-11.1) K/mcL Hgb 13.8 D 13.3 13.2 (12.9-16.9) g/dL Hct 41.2 39.1 38.7 (37.5-50.1) % Plt Count 222 (140-400) K/mcL Neutrophils # 2.6 (1.6-8.9) K/mcL BMP 04/08/18 07:06 Sodium 138 Potassium 3.9 Chloride 104 Carbon Dioxide 27 BUN 15 Creatinine 1.08 Glucose 109 H Calcium 9.7 - ABG Interpretation ABG results: PT/INR, D-dimer PT 12.4 Seconds (9.4-12.1) H 04/07/18 05:25 - Impressions Impressions Chest CTA 04/06/18 20:16 IMPRESSION: No evidence of pulmonary embolism or acute pulmonary abnormality. Incidentally noted 13 mm right adrenal nodule, indeterminate on this contrast-enhanced CT. Consider follow-up adrenal mass protocol CT in 12 months. D/ / 04/07/2018 07:10:15 Ifeanyi Armendariz MD / renetta Interpreting Provider: Ifeanyi Armendariz MD Echocardiogram 04/07/18 02:28 Impressions: Sinus bradycardia. LVEF 50-55%. Mild LV segmental wall motion abnormality. LV chamber size upper limits of normal. Mild left ventricular diastolic dysfunction. Normal right ventricular structure and function. Possibly a bicuspid aortic valve. Mild-moderate eccentric aortic regurgitation. Borderline evidence for aortic stenosis. Mild pulmonic regurgitation. No pulmonary hypertension. Aortic root and proximal ascending thoracic aorta size not well visualized. Consult Discharge Plan - Plan [facility]errals: [facility] [Primary Care Provider] - (2) Chest pain Qualifiers: Chest pain type: unspecified Qualified Code(s): R07.9 - Chest pain, unspecified (5) Hypertension Qualifiers: Hypertension type: unspecified Qualified Code(s): I10 - Essential (primary) hypertension (6) Hyperlipidemia Qualifiers: Hyperlipidemia type: unspecified Qualified Code(s): E78.5 - Hyperlipidemia, unspecified
[2018-04-08] MEDS: Albuterol 2.5 MG/3 ML NEBULIZER IH PRN (20:34)
[2018-04-08 23:39] LABS: Influenza A PCR Negative (Negative); Influenza B PCR Negative (Negative)
[2018-04-09] MEDS: Albuterol 2.5 MG/3 ML NEBULIZER IH PRN (00:05)
[2018-04-09] MEDS: Pantoprazole 40 MG VIAL IVP SCH (05:59)
[2018-04-09] MEDS: Heparin 25,000 UNIT/500 ML D5W 25,000 UNIT/500 ML BAG IVC SCH (06:56)
[2018-04-09 07:18] LABS: Folate 13.5 ng/mL (3.0-16.0)
--- NOTE | 2018-04-09 07:44 | Internal Med Progress Note ---
<Brigida Pfeiffer - Last Filed: 04/09/18 12:48> Hospitalist Progress Note - Encounter Date of Encounter: 04/09/18 Time of Encounter: 07:43 - Subjective Interval History: Pt received a breathing treatment at 2am after he stated he was feeling short of breath. SOB resolved after breathing treatment. States that he is feeling b alyson, denies chest pain or shortness of breath now. States that his SOB is only occasionally, at usually at night after he has gone to bed, and will require 2 pillows to be able to sleep. Also endorsing some occasional diarrhea [employer] but none during his stay here. Additionally complaining of some facial numbness which has been addressed by neurology. Lastly, has a history of intermittent dark red stools with one episode of "dirt-like stool" one time last week. Has had negative hemoccult test and Hg is stable during this admission. Will be evaluated by GI - spoke wtih Dr. Zapata from GI service who agreed to see the patient today. Pt has received 48 hours of heparin drip for NSTEMI, will d/c h eparin today. Awaiting recommendation from cardiology as to whether they will want to perform HC during this admission or as outpatient. Cardiology awaiting GI's recommendation on possibility of GIB. - Exam Vitals: Temp Pulse Resp BP Pulse Ox 98.2 F 64 16 129/85 94 04/09/18 07:23 04/09/18 07:23 04/09/18 07:23 04/09/18 07:23 04/09/18 07:23 Exam: General: A&O x 3. No acute distress. Well developed, well nourished. Head: atraumatic, normocephalic. ENT: No conjunctival injection, no scleral icterus. PERRLA. EOMI. Oropharynx non- erythematous. mucous membranes moist. Neuro: Left sided facial numbness, no motor deficits. Pulm: Lungs CTAB A/P. No wheezes, rales, ronchi. Cardio: RRR no m/r/g. Chest not tender to palpation. Abd: Soft, non-distended. Normoactive bowel sounds. Non-tender to palpation. No guarding. Non rigid. Extremities: Radial pulses 2+ renny, dorsalis pedis/posterior tibialis 2+ renny. No LE edema. No cyanosis, clubbing. Skin: warm, dry, intact. No rashes. Psych: Appropriate mood and affect. Answers questions appropriately. Cooperative with exam. - Assessment and Plan (1) NSTEMI (non-ST elevated myocardial infarction) Current Visit: Yes Status: Acute Assessment and Plan: NSTEMI, inital trop elevated 0.19 now down trended to normal trop at outside facility 0.06 and ekg with T wave inversions in the anterior and lateral leads as was a T-wave inversion in aVL. CTA neg PE or dissection, CXR neg attempting to obtain old cath reports-last heart cath was October of the this year at [facility] and no intervention was performed lipid panel with low HDL otherwise wnl A1C 6.1-prediabetic -on asa, statin, acei, no BB due to bradycardia -hep gtt for 48 hours, d/c today -cardiology following, awaiting GI recommendation, will determine need for LHC as out/in patient -echo done 04/07 shows EF 50-55%, mild LV dystolic dysfx, possible bicuspid aortic valve, mild-mod aortic regurg, mild pulmonic regurg -Dr Zapata, GI, will see today and eval GIB -neuro recommends 300mg gabapentin BID for left sided facial numbness in V3 distribution due to C3-C4 foraminal stenosis (2) Elevated troponin Current Visit: Yes Status: Resolved Assessment and Plan: Initial troponin was 0.19, now <0.03 (3) Facial paresthesia Current Visit: Yes Status: Acute Assessment and Plan: Neurology following, MRI brain no specific IC findings, MRI head with contrast identified C3-C4 foraminal stenosis and C6-C7 stenosis. Recommends 300mg gabapentin BID for V3 facial numbness and occasional numbness in left hand. - neuro checks continued - on aspirin, statin (4) Chest pain Current Visit: Yes Status: Acute Assessment and Plan: currently resolved, plan to d/c heparin gtt and LHC once GI rules out GIB (5) GI bleed Current Visit: Yes Status: Acute Assessment and Plan: One episode of melena and hx of dark red blood for last several months. None during this admission. -Hg stable - hemoccult negative - GI evaluating today - IV PPI BID, continue to monitor, consult surgery if bleeding becomes evident (6) HIV positive Current Visit: Yes Status: Chronic Assessment and Plan: Uncertain of last counts, pt on anti-retroviral therapy (7) Hypertension Current Visit: Yes Status: Chronic Assessment and Plan: continue home meds - lisinopril. beta blake was held due to bradycardia (8) Bradycardia with 41-50 beats per minute Current Visit: Yes Status: Acute Assessment and Plan: - HR at last vitals 73 - continue to monitor - cardiology following (9) Adrenal nodule Current Visit: Yes Status: Acute Assessment and Plan: incidental right adrenal nodule 13 mm on CTA chest - rec per radiology is adrenal mass protocol CT in 12 months (10) Hyperlipidemia Current Visit: Yes Status: Chronic Assessment and Plan: continue statin therapy (11) DVT prophylaxis Current Visit: Yes Status: Acute Assessment and Plan: - heparin gtt d/c today - SQ heparin 5000 units Q8 DVT Prophylaxis: SQ heparing 5000 units Q8 - Time Spent with Patient Total time spent is greater than 50% in coordination of care (as documented) at patient's floor/unit and/or counseling patient: less than 15 minutes Plan of Care Discussed with: patient Internal Medicine: Result - Labs CBC & Chem 7: 04/08/18 07:06 04/08/18 07:06 Labs: Short CBC 04/08/18 Range/Units 07:06 WBC 5.4 (4.3-11.1) K/mcL Hgb 13.2 (12.9-16.9) g/dL Hct 38.7 (37.5-50.1) % Plt Count 222 (140-400) K/mcL Neutrophils # 2.6 (1.6-8.9) K/mcL BMP 04/08/18 07:06 Sodium 138 Potassium 3.9 Chloride 104 Carbon Dioxide 27 BUN 15 Creatinine 1.08 Glucose 109 H Calcium 9.7 - ABG Interpretation ABG results: PT/INR, D-dimer PT 12.4 Seconds (9.4-12.1) H 04/07/18 05:25 - Impressions Impressions Brain MRI 04/08/18 11:08 IMPRESSION: No abnormality to explain facial numbness. D/ / 04/08/2018 14:34:47 Sampson Newman MD / renetta Interpreting Provider: Sampson Newman MD Cervical Spine MRI 04/08/18 18:27 IMPRESSION: C3-4 severe left foraminal stenosis. C6-7 moderate left foraminal stenosis. No evidence of cervical myelopathy. D/ / 04/08/2018 15:19:25 Sampson Newman MD / earnold Interpreting Provider: Sampson Newman MD Consult Discharge Plan - Plan [facility]errals: [facility] [Primary Care Provider[facility] - <Teresa Castro - Last Filed: 04/09/18 13:34> Hospitalist Progress Note - Exam Vitals: Temp Pulse Resp BP Pulse Ox 97.0 F L 73 16 143/81 97 04/09/18 12:31 04/09/18 12:31 04/09/18 12:31 04/09/18 12:31 04/09/18 12:31 - Assessment and Plan (1) NSTEMI (non-ST elevated myocardial infarction) Current Visit: Yes Status: Acute (2) Chest pain Current Visit: Yes Status: Acute (3) Facial paresthesia Current Visit: Yes Status: Acute (4) HIV positive Current Visit: Yes Status: Chronic (5) Hypertension Current Visit: Yes Status: Chronic (6) Hyperlipidemia Current Visit: Yes Status: Chronic (7) Bradycardia with 41-50 beats per minute Current Visit: Yes Status: Acute (8) DVT prophylaxis Current Visit: Yes Status: Acute (9) GI bleed Current Visit: Yes Status: Acute (10) Adrenal nodule Current Visit: Yes Status: Acute - Time Spent with Patient Total time spent is greater than 50% in coordination of care (as documented) at patient's floor/unit and/or counseling patient: Internal Medicine: Result - Labs CBC & Chem 7: 04/08/18 07:06 04/08/18 07:06 - ABG Interpretation ABG results: PT/INR, D-dimer PT 12.4 Seconds (9.4-12.1) H 04/07/18 05:25 - Impressions Impressions Brain MRI 04/08/18 11:08 IMPRESSION: No abnormality to explain facial numbness. D/ / 04/08/2018 14:34:47 Sampson Newman MD / renetta Interpreting Provider: Sampson Newman MD Cervical Spine MRI 04/08/18 18:27 IMPRESSION: C3-4 severe left foraminal stenosis. C6-7 moderate left foraminal stenosis. No evidence of cervical myelopathy. D/ / 04/08/2018 15:19:25 Sampson Newman MD / renetta Interpreting Provider: Sampson Newman MD - Attending Attestation I examined this patient and my medical decision-making was reviewed with the Res ident Physician Dr Pfeiffer. I agree with the documented findings, disposition and treatment plan as described except to the extent set forth below/addl details below. Mr Booth was admitted with chest pain, dx with nstemi and placed on heparin gtt with cardiology following. 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 hgb stable here and no evidence of gb on hep gtt. Cards would like to obtain LHC but needs pt seen by GI first with eval pending. He addl c/o left face pain, since resolved, and numbness, still persists. Neuro evaluated him, imaging revealed no cva, no CN neuritis and MRI c spine indicated high cervial spinal stenosis as likely cause of sxs per neuro. No surg interventoin required and gabapentin started. awake, alert, pel[place]. no further chest pain since on hep gtt. no chest pressure, palpitations. left face remains numb. no new numbness, weakness. bms remain brown. gen- alert, awake,appears stated age eyes- pupils equal round, no conjunctival pallor cv- reg rate and rhythm, normal s1,s2, no murmurs appreciated, no le edema or jvd lungs- ctabl, no wheezing, rhonchi or crackles, norm resp effort on ra abd- soft, non tender, non distended, + bs neuro- AAOx3, CN grossly intact, no focal deficits NSTEMI Inital trop elevated 0.19 now down trended to normal trop at outside facility 0.06 and ekg with T wave inversions in the anterior and lateral leads as was a T-wave inversion in aVL. CTA neg PE or dissection, CXR neg cards attempting to obtain old cath reports-last heart cath was October of the this year at [facility] and no intervention was performed lipid panel with low HDL otherwise wnl A1C 6.1-prediabetic -on asa, statin, acei, no BB due to bradycardia, no imdur due to s/e from med in past -dc hep gtt as has been 48hrs -cards following and will need C but deferred currently due to hx of gib at home(none evident here to date), gi eval pending -echo 04/07 EF 50-55%possible bicuspid aortic valve, mild diastolic dysf, midl to mod AR, borderline , mild pulmonic regurg -fu cards recs FAcial parasthesias likely 2/2 -CTA neg dissection, CTA head/neck neg fora cute abnormality/dissection, LICA 40% stenosis and CALI <25% -MRI brain no acute IC findings, few non specific foci in subcortical white matter c/w chronic microvascular ischemia, remote trauma or migraine -MRI of the cervical spine higher cervical foraminal stenosis at C3 and C4 and neuro suspects symptoms are likely related to it no evidence of a stroke on MRI of the brain -rec to start gabapentin BID which is ordered, given sensory deficit only neuro did not feel need for surgical intervention or consultationat this time -should fu outpt upon dc for further monitoring Bradycardia sinus, on tele, monitoring lytes to keep at goal - cards consulted, concern is related to possible ischemia -mag ox interacts with his anti virals, will have to confirm with pharmacy safest formulation of mag should he need it hold BB Reported Hx of GIB, no active bleeding Melena episode and history of BRBPR and hematochezia x3 years- none this admission Anemia on admit hgb 11.8 and uptrend to normal without intervention, no prior hgb to see if acute vs chronic vs acute on chronic -occult stool negative -IV PPI BID, will monitor for visualized signs of bleeding -gi eval pending incidental right adrenal nodule 13 mm on CTA chest -rec per radiology is adrenal mass protocol CT in 12 months <Brigida Pfeiffer L - Last Filed: 04/09/18 12:48> (4) Chest pain Qualifiers: Chest pain type: unspecified Qualified Code(s): R07.9 - Chest pain, unspecified (7) Hypertension Qualifiers: Hypertension type: unspecified Qualified Code(s): I10 - Essential (primary) hypertension (10) Hyperlipidemia Qualifiers: Hyperlipidemia type: unspecified Qualified Code(s): E78.5 - Hyperlipidemia, unspecified <Teresa Castro M - Last Filed: 04/09/18 13:34> (2) Chest pain Qualifiers: Chest pain type: unspecified Qualified Code(s): R07.9 - Chest pain, unspecified (5) Hypertension Qualifiers: Hypertension type: unspecified Qualified Code(s): I10 - Essential (primary) hypertension (6) Hyperlipidemia Qualifiers: Hyperlipidemia type: unspecified Qualified Code(s): E78.5 - Hyperlipidemia, unspecified
[2018-04-09] MEDS: Lisinopril 20 MG TABLET PO SCH (09:40)
--- NOTE | 2018-04-09 09:42 | Cardiology Progress Note ---
Date of Encounter: 04/09/18 Time of Encounter: 09:36 Assessment and Plan (1) Chest pain Current Visit: Yes Status: Acute Possible ACS vs demand ischemia. Troponin 0.06, 0.19, and then negative x2. Presented with intermittent chest pain, facial numbness, and bloody stools. GI consulted and nuero following. Pt underwent LHC 10/2017 and seen to have moderate non-obstructive CAD with no intervention. EKG shows SR with diffuse t-wave inversions. TTE this admit with EF 50-55% and segmental WMA. possible bicuspid aortic valve with mild to moderate AR. We are waiting on records from [facility] to compare. He is on heparin gtt with no recurrent bleeding. Nuero work-up is negative for CVA. Pt- declines imdur due to reaction to other medications. No beta-blake due to bradycardia. Continue asa, statin, and PRN NTG. Further recommendations pending records. Qualifiers: Chest pain type: unspecified Qualified Code(s): R07.9 - Chest pain, unspecified (2) Elevated troponin Current Visit: Yes Status: Acute Discussion w patient/family: The assessment and plan as outlined above was discussed with the patient and/or family members who expressed understanding and agreement. All questions were answered. Thank you for involving us in the care of your patient. Please call with any questions. Subjective Principal diagnosis: chest pain, elevated troponin Interval history: Mr. Booth denies chest pain. Denies recurrent bloody stools. Continues to have facial numbness. Objective Vital Signs, Last 4 Hours Temp Pulse Resp BP Pulse Ox 04/09/18 07:23 98.2 F 64 16 129/85 94 General: Conversant, No Apparent Distress HEENT: Atraumatic, Normocephaly, Mucus Membranes Moist Neck: No JVD, Normal carotid pulses Cardiac: Reg Rate and Rhythm, Normal S1 and S2, No Murmur Lungs: Normal Breath Sounds, No Wheeze, Rales, Rhonchi Neuro: Alert and responsive, No focal deficits noted Abdomen: Soft, Non-Tender Skin: No rashes noted on visualized skin Musculoskeletal: No Chest Wall Tenderness Extremities: No Clubbing, No Cyanosis, No Edema, Normal Pulses Results 04/08/18 07:06 04/08/18 07:06 - Imaging and Cardiology Echo: report reviewed Consult Discharge Plan - Plan [facility]errals: [facility] [Primary Care Provider] -
[2018-04-09] MEDS: Aspirin 81 MG TAB.CHEW PO SCH (09:43)
--- NOTE | 2018-04-09 10:18 | Neurology Progress Note ---
Date of Encounter: 04/09/18 Time of Encounter: 08:16 Assessment and Plan (1) Facial paresthesia Current Visit: Yes Status: Acute Patient did have some paresthesias in the V3 distribution and some numbness in the left arm in the chest area without any other focal findings on examination MRI of the cervical spine did shows evidence of higher cervical foraminal stenosis at C3 and C4 suspect his symptoms are likely related to it no evidence of a stroke on MRI of the brain Discussed and explained to the patient Considering symptoms is purely sensory do not think that he would require any surgical intervention or surgical consultation at this time Patient also activities Suggest to start him on gabapentin 300 mg twice a day Continue him on other medications From neurology standpoint patient is stable and could be discharged Subjective Principal diagnosis: chest pain, elevated troponin Interval history: Patient is stable having numbness of the face and sometimes in the left arm no other clinical symptoms noted on examination his MRI of the cervical spine did shows an evidence of severe C3 and C4 left foraminal stenosis along with some stenosis at C6 and C7, as expected No other sinus symptoms to be concern of a stroke Objective - Constitutional Vitals: Temp Pulse Resp BP Pulse Ox 98.2 F 64 16 129/85 94 04/09/18 07:23 04/09/18 07:23 04/09/18 07:23 04/09/18 07:23 04/09/18 07:23 - Neurological Exam Motor Examination: Present: grossly full strength in all extremities Sensation intact: Present: intact Reflex and gait examination: intact Reflexes: Biceps: 1+, Triceps: 1+, Brachioradialis: 1+, Patella: 1+, Achilles: 1+ Mental Status Examination: Present: awake, alert, oriented to person, oriented to place, follows commands appropriately, answers questions appropriately Cranial nerve examination: Present: PERRL, EOMI, corneal reflexes brisk symmetrically, mastication intact, no facial asymmetry is present, no dysarthria Results - Laboratory Findings CBC and BMP: 04/08/18 07:06 04/08/18 07:06 Abnormal lab findings: Abnormal lab results RBC 4.12 M/mcL (4.19-5.50) L 04/08/18 07:06 PT 12.4 Seconds (9.4-12.1) H 04/07/18 05:25 APTT 124.7 Seconds (26.0-36.0) H* 04/07/18 05:25 Heparin Anti-Xa, Unfract 0.75 IU/mL (0.30-0.70) H 04/09/18 06:11 Glucose 109 mg/dL (70-105) H 04/08/18 07:06 Hemoglobin A1c 6.1 % (-5.6) H 04/07/18 05:25 HDL Cholesterol 31 mg/dL (40-59) L 04/07/18 05:25 Vitamin B12 212 pg/mL (250-1100) L 04/09/18 06:11 - Diagnostic Findings Additional findings: MRI I of the cervical spine showed C3-4 severe left foraminal stenosis. C6-7 moderate left foraminal stenosis. No evidence of cervical myelopathy. MRI of the brain earlier was negative for any acute infarct Consult Discharge Plan - Plan [facility]errals: [facility] [Primary Care Provider] -
[2018-04-09] MEDS: DARUNAVIR ETHANOLATE 600 MG PO SCH (10:30)
[2018-04-09] MEDS: [UNRECOGNIZED DRUG - OTHER] SQ SCH (10:30)
[2018-04-09] MEDS: RALTEGRAVIR POTASSIUM 400 MG TABLET PO SCH (11:15)
[2018-04-09] MEDS: lamiVUDine 150 MG TABLET PO SCH (11:15)
[2018-04-09] MEDS ORDERED: *HR* Heparin 5,000 UNIT/ML VIAL SQ SCH (14:00)
--- NOTE | 2018-04-09 14:38 | Gastroenterology Consult Note ---
<ZapataHernandez cordero Chen - Last Filed: 04/09/18 14:35> Date of Encounter: 04/09/18 Time of Encounter: 10:50 - Assessment and plan (1) GI bleed Status: Acute Assessment and plan: He reports one episode of black stool about 1 week ago. Since then, he reports having bowel movements containing blood clots and other times bright red blood, denies tarry or sticky consistency of his bowel movements. Hgb 11.8 on admission and 13.2 today with no intervention. Fecal occult blood test was negative. Plan for EGD and colonoscopy tomorrow, pending Cardiology clearance. Clear liquid diet today, no red or purple. NPO at midnight. If unable tolerate NuLytely please use MiraLAX prep. If not clear by 6 AM, give 2 tap water enemas. Will need to hold Heparin gtt 6 hours before scopes. Qualifiers: GI bleed type/associated pathology: unspecified gastrointestinal hemorrhage type Qualified Code(s): K92.2 - Gastrointestinal hemorrhage, unspecified (2) NSTEMI (non-ST elevated myocardial infarction) Status: Acute Assessment and plan: Cardiology following. - Time Spent With Patient Total time spent is greater than 50% in coordination of care (as documented) at patient's floor/unit and/or counseling patient: GI History of Present Illness - Data of Consult Patient: new to practice Consult date: 04/09/18 Requesting Physician: Teresa Castro - Consult Narrative Reason for consult: Black stools, possible GI bleed History of present illness: Mr. Booth is a 53 year old male with PMHx of arthritis, asthma, GI bleed, HIV/AIDS, HLD, HTN, SD who was transferred from the [place] with chest pain and black stools. He's had 4 heart attacks in the past with chest pain described as pressure/heaviness. Chest pain located in center of chest characterized as sharp and tearing; the tearing sensation radiates from his chest to left side of his head. The chest pain improves with nitroglycerin; chest pain is worse with respiration and laying flat. He reports one episode of black stool about 1 week ago. Since then, he reports having bowel movements containing blood clots and other times bright red blood, denies tarry or sticky consistency of his bowel movements. He has never had an EGD or a colonoscopy. Pt is on Heparin gtt for NSTEMI. Fecal occult blood test negative. Hgb 11.8 on admission and 13.2 today with no intervention. He was started on BID PPI, and no active bleeding has been noted. Procedures: None NSAIDs: None Anticoagulation: None Past Med Surg Social Fam HX - Past Medical History Medical history: arthritis, asthma, GI bleed, HIV/AIDS, hyperlipidemia, hypertension, myocardial infarction - Past Surgical History Additional surgical history: Cardiac Cath 3-4 months ago, knee sx - Social History Smoking Status: Former smoker Smokeless Tobacco Status: No Alcohol use: occasionally Drug use: marijuana - Family History Mother Hx Family Cancer: Yes - Gastrointestinal Gastrointestinal: Present: as per HPI - Constitutional Constitutional: as per HPI - EENT Eyes: as per HPI Ears: Present: as per HPI Nose, mouth and throat: Present: as per HPI - Cardiovascular Cardiovascular ROS: Present: as per HPI - Respiratory Respiratory IM: Present: as per HPI - Genitourinary Genitourinary: Absent: change in color, Urinary frequency - Neurological ROS Neurological GI: Present: as per HPI - Hematologic/Lymphatic Hematologic/Lymphatic pediatric: Present: as per HPI - Musculoskeletal Musculoskeletal ROS GI: Present: as per HPI - Integumentary Integumentary GI: Present: as per HPI - Psychiatric ROS Psychiatric GI: Present: as per HPI - Endocrine Endocrine IM: Present: as per HPI - Constitutional Vitals: Temp Pulse Resp BP Pulse Ox 97.0 F L 73 16 143/81 97 04/09/18 12:31 04/09/18 12:31 04/09/18 12:31 04/09/18 12:31 04/09/18 12:31 General appearance: Present: cooperative, A&O X 3, no acute distress, answers questions appropriately - Head Head exam: Present: atraumatic, normocephalic - Eye Eye exam: Present: normal appearance, sclera anicteric - ENT ENT exam: Present: mucous membranes moist - Neck Neck exam general surgery: Present: normal inspection, trachea midline - Respiratory Respiratory exam: Present: CTAB. Absent: rales, rhonchi - Cardiovascular Cardiovascular exam: Present: RRR, +S1, +S2 - GI/Abdominal GI/Abdominal exam: Present: soft, no peritoneal signs. Absent: distended, firm, guarding, tenderness - Rectal Rectal exam: Present: deferred - Extremities Exam Extremities exam: Present: warm - Neurological Exam Neurological exam: Present: no focal deficits - Psychiatric Psychiatric exam: Present: normal affect, normal mood - Skin Skin exam: Present: dry, intact, normal color, warm Results - Labs CBC & Chem 7: 04/08/18 07:06 04/08/18 07:06 Labs: Last Result Calcium 9.7 mg/dL (8.6-10.3) 04/08/18 07:06 Troponin I < 0.03 ng/mL (< 0.04) 04/07/18 02:35 Triglycerides 107 mg/dL (< 150) 04/07/18 05:25 Vitamin B12 212 pg/mL (250-1100) L 04/09/18 06:11 Folate 13.5 ng/mL (3.0-16.0) 04/09/18 06:11 Entire Visit Hgb 13.2 g/dL (12.9-16.9) 04/08/18 07:06 Hct 38.7 % (37.5-50.1) 04/08/18 07:06 PT 12.4 Seconds (9.4-12.1) H 04/07/18 05:25 Folate 13.5 ng/mL (3.0-16.0) 04/09/18 06:11 - ABG ABG results: PT/INR, D-dimer PT 12.4 Seconds (9.4-12.1) H 04/07/18 05:25 - Impressions Impressions Brain MRI 04/08/18 11:08 IMPRESSION: No abnormality to explain facial numbness. D/ / 04/08/2018 14:34:47 Sampson Newman MD / renetta Interpreting Provider: Sampson Newman MD Cervical Spine MRI 04/08/18 18:27 IMPRESSION: C3-4 severe left foraminal stenosis. C6-7 moderate left foraminal stenosis. No evidence of cervical myelopathy. D/ / 04/08/2018 15:19:25 Sampson Newman MD / renetta Interpreting Provider: Sampson Newman MD Consult Discharge Plan - Plan Instructions: Myocardial Infarction (DC), Chest Pain (DC), Chronic Hypertension (DC), Human Immunodeficiency Virus Infection (DC) [facility]errals: [facility] [Primary Care Provider] - <Rui Romero - Last Filed: 04/13/18 10:25> - Time Spent With Patient Total time spent is greater than 50% in coordination of care (as documented) at patient's floor/unit and/or counseling patient: GI History of Present Illness - Data of Consult Requesting Physician: Teresa Castro - Consult Narrative History of present illness: Mr. Booth is a 53 year old male - Constitutional Vitals: Temp Pulse Resp BP Pulse Ox 97.0 F L 68 15 167/99 97 04/09/18 15:32 04/09/18 15:32 04/09/18 15:32 04/09/18 15:32 04/09/18 15:32 Results - Labs CBC & Chem 7: 04/08/18 07:06 04/08/18 07:06 Labs: Last Result Calcium 9.7 mg/dL (8.6-10.3) 04/08/18 07:06 Troponin I < 0.03 ng/mL (< 0.04) 04/07/18 02:35 Triglycerides 107 mg/dL (< 150) 04/07/18 05:25 Vitamin B12 212 pg/mL (250-1100) L 04/09/18 06:11 Folate 13.5 ng/mL (3.0-16.0) 04/09/18 06:11 Entire Visit Hgb 13.2 g/dL (12.9-16.9) 04/08/18 07:06 Hct 38.7 % (37.5-50.1) 04/08/18 07:06 PT 12.4 Seconds (9.4-12.1) H 04/07/18 05:25 Folate 13.5 ng/mL (3.0-16.0) 04/09/18 06:11 - ABG ABG results: PT/INR, D-dimer PT 12.4 Seconds (9.4-12.1) H 10/20/18 05:25 - Attending Attestation I have personally performed a face to face evaluation on this patient. I have reviewed and agree with the care plan. History and Exam by me shows:
[2018-04-09 15:35] VITALS: BP 167/99
--- NOTE | 2018-04-09 16:21 | Discharge Summary ---
<Teresa Castro - Last Filed: 04/09/18 17:08> Orders not resulted at time of discharge: Pending orders 04/10/18 04:00 Complete Blood Count [HEME] AM 0400 Comprehensive Metabolic Panel AM 0400 PTT [Activated Partial Thrombo Time] [COAG] AM 0400 Prothrombin Time INR [COAG] AM 0400 - Discharge Diagnosis (1) NSTEMI (non-ST elevated myocardial infarction) Status: Acute (2) Facial paresthesia Status: Acute (3) HIV positive Status: Chronic (4) Hypertension Status: Chronic Qualifiers: Hypertension type: unspecified Qualified Code(s): I10 - Essential (primary) hypertension (5) Hyperlipidemia Status: Chronic Qualifiers: Hyperlipidemia type: unspecified Qualified Code(s): E78.5 - Hyperlipidemia, unspecified (6) Bradycardia with 41-50 beats per minute Status: Acute (7) DVT prophylaxis Status: Acute (8) GI bleed Status: Acute Qualifiers: GI bleed type/associated pathology: unspecified gastrointestinal hemorrhage type Qualified Code(s): K92.2 - Gastrointestinal hemorrhage, unspecified (9) Adrenal nodule Status: Acute Hospital course: Mr. Booth is a 53 year old male - Time Spent with Patient Total time spent providing and/or coordinating discharge services: - Discharge Medications Home Medications: Chlorthalidone 25 mg PO DAILY 04/06/18 [History] Darunavir Ethanolate [Prezista] 600 mg PO BID 04/06/18 [History] Enfuvirtide [Fuzeon] 90 mg SQ BID 04/06/18 [History] Lisinopril [Zestril] 40 mg PO DAILY 04/06/18 [History] Raltegravir Potassium [Isentress] 400 mg PO BID 04/06/18 [History] Rosuvastatin Calcium [Crestor] 20 mg PO DAILY 04/06/18 [History] lamiVUDine [Epivir] 300 mg PO DAILY 04/06/18 [History] Allergies/Adverse Reactions: Allergy/AdvReac Type Severity Reaction Status Date / Time Sulfa (Sulfonamide Allergy Itching Verified 04/06/18 19:52 Antibiotics) Date of admission: 04/09/18 12:50 [facility] care physician: [facility] Consults: 04/07/18 02:28 Consult to Cardiac Rehabilitation-Phase1 [CONS] Routine Comment: Reason for Consult: AMI Call Completed: Yes Consult to Nurse Navigator [CONS] Routine Comment: 04/07/18 04:01 Consult to Cardiology [CONS] Routine Comment: Consulting Provider: [facility] Reason for Consult: NSTEMI, h/o NM Call Completed: No 04/07/18 04:56 Consult to Neurology [CONS] Routine Consulting Provider: [facility] Reason for Consult: new left-sided facial paresthesia, HIV+ Call Completed: No 04/07/18 06:45 Consult to Gastroenterology [CONS] Routine Consulting Provider: [facility] Reason for Consult: Black stools, possible GI bleed Call Completed: No - Constitutional Vitals: Temp Pulse Resp BP Pulse Ox 97.0 F L 68 15 167/99 97 04/09/18 15:32 04/09/18 15:32 04/09/18 15:32 04/09/18 15:32 04/09/18 15:32 - Patient Status Disposition: Left Against Medical Advice Condition: Good - Discharge Instructions Instructions: Myocardial Infarction (DC), Chest Pain (DC), Chronic Hypertension (DC), Human Immunodeficiency Virus Infection (DC) Follow Up With: [facility] [Primary Care Provider] - Forms: ED Satisfaction Letter - Attending Attestation I examined this patient and my medical decision-making was reviewed with the Resident Physician Dr Epstein. I agree with the documented findings, disposition and treatment plan as described except to the extent set forth below. Mr Booth very unfortunately left the hospital AMA prior to cardiac work up being complete. He was treated for NSTEMI, with hep gtt able to be dc this morning and given his reported hx of GIB in past, cards did not feel comfortable with preceding with required LHC until cleared by GI. GI was consulted this morning,saw pt and planned to do a cscope in AM to further assess so that cardiology could obtain rec for when LHC was safest to be done- inpt vs outpt. Pt noted to nursing that he had a whom was now sick at home and he needed to leave. He was educated by physician at bedside of the risk of leaving including further morbidity and , and he declined to stay verbalizing understanding of risk. <George Epstein - Last Filed: 04/09/18 17:34> - NOTES TO OUTPATIENT PROVIDER Notes to Outpatient Provider: Patient left AMA after being on Heparin drip for NSTEMI. He was scheduled for a colonoscopy due to concerns of GI bleeding. Please follow up for outpatient colonoscopy. Patient had incidental right adrenal nodule (13 mm) on CTA chest. - recommend adrenal mass protocol CT in 12 months to re-evaluate. Orders not resulted at time of discharge: Pending orders 04/10/18 04:00 Complete Blood Count [HEME] AM 0400 Comprehensive Metabolic Panel AM 0400 PTT [Activated Partial Thrombo Time] [COAG] AM 0400 Prothrombin Time INR [COAG] AM 0400 Date of Encounter: 04/09/18 Time of Encounter: 16:10 - Discharge Diagnosis (1) NSTEMI (non-ST elevated myocardial infarction) Priority: Primary Status: Acute Assessment and Plan: NSTEMI, inital trop elevated 0.19 now down trended to normal trop at outside facility 0.06 and ekg with T wave inversions in the anterior and lateral leads as was a T-wave inversion in aVL. CTA neg PE or dissection, CXR neg attempting to obtain old cath reports-last heart cath was October of the this year at [facility] and no intervention was performed lipid panel with low HDL otherwise wnl A1C 6.1-prediabetic -on asa, statin, acei, no BB due to bradycardia -remains on hep gtt -cards following and will need LHC but deferred currently due to hx of gib at home(none evident here to date) and left face numbness -awaiting echo -GI consult when gi available monday -neuro following regarding left face numbness Comments: NSTEMI, inital trop elevated 0.19 now down trended to normal trop at outside facility 0.06 and ekg with T wave inversions in the anterior and lateral leads as was a T-wave inversion in aVL. CTA neg PE or dissection, CXR neg attempting to obtain old cath reports-last heart cath was October of the this year at [facility] and no intervention was performed lipid panel with low HDL otherwise wnl A1C 6.1-prediabetic -on asa, statin, acei, no BB due to bradycardia -hep gtt for 48 hours, d/c today -cardiology following, awaiting GI recommendation, will determine need for LHC as out/in patient -echo done 04/07 shows EF 50-55%, mild LV dystolic dysfx, possible bicuspid aortic valve, mild-mod aortic regurg, mild pulmonic regurg -GI consulted to eval for GIB today, recommended colonoscopy in AM, but patient left AMA -neuro recommends 300mg gabapentin BID for left sided facial numbness in V3 distribution due to C3-C4 foraminal stenosis (2) GI bleed Priority: Secondary Status: Acute Assessment and Plan: Melena episode and history of BRBPR and hematochezia x3 years- none this admission Anemia on admit hgb 11.8 and uptrend to normal without intervention, no prior hgb to see if acute vs chronic vs acute on chronic - requires hep gtt for nstemi at this time, serial h/hs stable, can now check daily or as needed -occult stool negative -IV PPI BID, will monitor for visualized signs of bleeding here and if present will consult surg for active bleed as they are providing emergent coverage for GI this weekend and GI consult placed on admit, unless there is an emergency, will not be seen until monday Qualifiers: GI bleed type/associated pathology: unspecified gastrointestinal hemorrhage type Qualified Code(s): K92.2 - Gastrointestinal hemorrhage, unspecified (3) Facial paresthesia Priority: Primary Status: Acute Assessment and Plan: Facial Pain/Parasthesias unclear etiology at this time, FAcial pain assoicated with chest pain has resolved -CTA neg dissection, CTA head/neck neg fora cute abnormality/dissection, LICA 40% stenosis and CALI <25% -MRI brain no acute IC findings, few non specific foci in subcortical white matter c/w chronic microvascular ischemia, remote trauma or migraine -neurology following- rec for MRI with contrast of head to eval for neuritis, alejandro in setting of HIV, to rule out cranial nerve neuritis, obtain MRI C spine to rule out cervial impingement as has hx of occassional numbness in left hand -neuro checks unchanged -on asa, statin (4) HIV positive Priority: Secondary Status: Chronic Assessment and Plan: on anti virals details of most recent counts unknown (5) Hypertension Priority: Secondary Status: Chronic Assessment and Plan: continue home meds- lisinopril, BB held due to bradycardia Qualifiers: Hypertension type: unspecified Qualified Code(s): I10 - Essential (primary) hypertension (6) Hyperlipidemia Priority: Secondary Status: Chronic Assessment and Plan: cont statin Qualifiers: Hyperlipidemia type: unspecified Qualified Code(s): E78.5 - Hyperlipidemia, unspecified (7) Bradycardia with 41-50 beats per minute Priority: Secondary Status: Acute Assessment and Plan: sinus, on tele, monitoring lytes to keep at goal - cards consulted, concern is related to possible ischemia -mag ox interacts with his anti virals, will have to confirm with pharmacy safest formulation of mag should he need it hold BB (8) Adrenal nodule Priority: Secondary Status: Acute Assessment and Plan: incidental right adrenal nodule 13 mm on CTA chest -rec per radiology is adrenal mass protocol CT in 12 months (9) DVT prophylaxis Priority: Secondary Status: Acute Assessment and Plan: Now off heparin gtt Hospital course: Mr. Booth is a 53 year old male with a PHM of CAD, cardiac stents x4, HIV+ on antiretrovirals, HTN, and HLD who was admitted with chest pain, dx with NSTEMI, and placed on heparin gtt with cardiology following. He reported melena one week ago and has a 3 yr history of intermittent bloody bowel movements. His HGB has been stable here with no evidence of bleeding on hep gtt. Cardiology would like to obtain LHC but requested that pt be seen by GI first. He addl c/o left face pain, since resolved, and numbness, which still persists. Neuro evaluated him, imaging revealed no cva, no CN neuritis and MRI c spine indicated high cervial spinal stenosis as likely cause of sxs per neuro. No surg interventoin required and gabapentin was started. GI was consulted this morning, saw pt and planned to do a cscope in AM to further assess so that cardiology could obtain rec for when LHC was safest to be done- inpt vs outpt. Unfortunately the patient left the hospital AMA prior to cardiac work up or colonoscopy being complete because his has cancer and he needed to leave to take her to the hospital for an appointment in the morning. He was educated about the risk of leaving AMA including further morbidity and , and he declined to stay verbalizing understanding of risk. Discharge discussed with: patient, nurse - Time Spent with Patient Total time spent providing and/or coordinating discharge services: Date of admission: 04/09/18 12:50 [facility] care physician: [facility] Consults: 04/07/18 02:28 Consult to Cardiac Rehabilitation-Phase1 [CONS] Routine Comment: Reason for Consult: AMI Call Completed: Yes Consult to Nurse Navigator [CONS] Routine Comment: 04/07/18 04:01 Consult to Cardiology [CONS] Routine Comment: Consulting Provider: [facility] Reason for Consult: NSTEMI, h/o NM Call Completed: No 04/07/18 04:56 Consult to Neurology [CONS] Routine Consulting Provider: [facility] Reason for Consult: new left-sided facial paresthesia, HIV+ Call Completed: No 04/07/18 06:45 Consult to Gastroenterology [CONS] Routine Consulting Provider: [facility] Reason for Consult: Black stools, possible GI bleed Call Completed: No Discharging clinician: Teresa Castro Anticipated date of discharge: 04/09/18 - Constitutional Vitals: Temp Pulse Resp BP Pulse Ox 97.0 F L 68 15 167/99 97 04/09/18 15:32 04/09/18 15:32 04/09/18 15:32 04/09/18 15:32 04/09/18 15:32 General appearance: Present: cooperative, A&O X 3, pleasant, no acute distress Exam: awake, black male - Head Head exam: Present: atraumatic, normocephalic - Eye Eye exam: Present: EOMI, conjuntiva pink, sclera anicteric - Neck Neck exam general surgery: Present: supple, trachea midline. Absent: lymphadenopathy - Respiratory Respiratory exam: Present: CTAB. Absent: accessory muscle use, rales, rhonchi, wheezes - Cardiovascular Cardiovascular exam: Present: RRR, +S1, +S2. Absent: diastolic murmur, gallop, rubs, systolic murmur - GI/Abdominal GI/Abdominal exam: Present: normal bowel sounds, soft. Absent: distended, tende rness - Extremities Exam Extremities exam: Present: warm, radial pulses palpable and symmetrical. Absent: calf tenderness, cyanotic, pedal edema - Neurological Exam Neurological exam: Present: oriented X3, pronater drift. Absent: facial droop (left facial numbness), speech deficit - Skin Skin exam: Present: dry, intact - Patient Status Functional capacity at discharge: independent ambulation Overall status at discharge: patient is progressing back to baseline
[2018-04-09] MEDS ORDERED: SODIUM CHLORIDE/NAHCO3/KCL/PEG 4,000 ML SOLN.RECON PO ONE (17:00)
[2018-04-09] MEDS ORDERED: Gabapentin 300 MG CAPSULE PO SCH (21:00)
--- NOTE | 2018-04-10 03:25 | Anesthesia Evaluation PreOp ---
Date of Encounter: 04/10/18 Time of Encounter: 03:23 - Past History Planned Operation: EGD and colonoscopy Cardiac History: CA (recent NSTEMI 04/07/18), HTN, Hyperlipidemia, Other ([facility] 10/2017 and seen to have moderate non-obstructive CAD with no intervention. EKG shows SR with diffuse t-wave inversions. TTE this admit with EF 50-55% and segmental WMA. possible bicuspid aortic valve with mild to moderate AR. We are waiting on records from [facility] to compare. He is on heparin gtt with no recurrent bleeding. Nuero work-up is negative for CVA. Pt- declines imdur due to reaction to other medications. No beta-blake due to bradycardia. Continue asa, statin, and PRN NTG. Further recommendations pending records.) Pulmonary History: Asthma [employer] History: Denies Any Significant HX Other Medical History: Other (HIV/AIDS, GI bleed) Anesthesia History: No Prior Anesthetic Complications, Past Anesthesia (knee sx) Alcohol Use: occasionally Drug use: marijuana Medications and Allergies Chlorthalidone 25 mg PO DAILY 04/06/18 [History] Darunavir Ethanolate [Prezista] 600 mg PO BID 04/06/18 [History] Enfuvirtide [Fuzeon] 90 mg SQ BID 04/06/18 [History] Lisinopril [Zestril] 40 mg PO DAILY 04/06/18 [History] Raltegravir Potassium [Isentress] 400 mg PO BID 04/06/18 [History] Rosuvastatin Calcium [Crestor] 20 mg PO DAILY 04/06/18 [History] lamiVUDine [Epivir] 300 mg PO DAILY 04/06/18 [History] Allergy/AdvReac Type Severity Reaction Status Date / Time Sulfa (Sulfonamide Allergy Itching Verified 04/06/18 19:52 Antibiotics) - Meds/Allergy Pre-op Review Medications Reviewed: Yes Allergies Reviewed: Yes Beta Blockers on Current Med List: No Anesthesia Results - Labs 04/08/18 07:06 04/08/18 07:06 - Imaging EKG: report reviewed (Sinus bradycardia LVH with IVCD, LAD and probable secondary repol abnrm Cannot rule out anterior ischemia Electronically Signed On 04-07-2018 11:56:22 EDT by Yoana Locke) Anesthesia Exam Vital Signs/O2 Sat, Most Current Temp Pulse Resp BP Pulse Ox 97.0 F L 68 15 167/99 97 04/09/18 15:32 04/09/18 15:32 04/09/18 15:32 04/09/18 15:32 04/09/18 15:32 Anesthesia Assess/Plan ASA Score: 4 Modified Tala Scale for Level of Consciousness: Cooperative, oriented, and tranquil Anesthetic Plan: General, MAC Monitoring Plan: Standard Monitors Recovery Plan: PACU
--- NOTE | 2018-04-10 17:09 | Electrocardiograph Report ---
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
== END 2018-04-09 16:40 | disposition left against medical advice (07) | DRG 281 ==
LOC: 2NENU 19:17 → EMEROOARM 19:17 → SUATTDRO 23:38 → 2NENU 04-07 01:43
PROVIDERS: ADMIT Family Medicine; ATTEND Internal Medicine